=== PATIENT | male | born 1950 | race Hispanic/Latino ===

== ENCOUNTER 2016-06-15 10:48 | Emergency (ER) | payer MEDICARE ==
[2016-06-15 10:58] VITALS: BMI 28.1
[2016-06-15] MEDS ORDERED: Morphine 4 mg/ml ISec IVP STA (11:30)
[2016-06-15] MEDS ORDERED: Sodium Chloride 0.9% 1,000 ML IV STA (11:30)
--- NOTE | 2016-06-15 11:43 | ED PDOC ---
Arrival/HPI - General Chief Complaint: Male Genitourinary Time Seen by Provider: 06/15/16 11:19 Historian: Patient - History of Present Illness Narrative History of Present Illness (Text): 06/15/16 11:22 A 65 year old male, whose past medical history includes hypertension and ulcerative colitis, presents to the emergency department complaining of urinary problem and lower back pain. Patient reports for the past 4 days he has been experiencing blood in the urine along with dysuria. Patient notes he has a history of ulcerative colitis and usually when it acts up he need to take more prednisone, which leads to him having urinary issues. Patient mention the blood in the urine was just 2 times and then it cleared up. Patient also complains of left lower back pain but also mentions he exercised yesterday, after which the pain developed. Patient denies any abdominal pain, nausea, vomiting, fever, chills, lower extremity swelling, shortness of breath, chest pain, or any complaints at this time. PMD: Dr. Mota Time/Duration: < week (4 days) Symptom Onset: Gradual Symptom Course: Unchanged Quality: Burning Activities at Onset: Rest Modifying Factors (Text): none Context: Home Associated Symptoms (Text): dysuria Past Medical History - Provider Review Nursing Documentation Reviewed: Yes - Infectious Disease Hx of Infectious Diseases: None - Cardiac Hx Cardiac Disorders: Yes Hx Hypertension: Yes Hx Pacemaker: No - Pulmonary Hx Respiratory Disorders: No - Neurological Hx Neurological Disorder: No Hx Paralysis: No - HEENT Hx HEENT Disorder: No - Renal Hx Renal Disorder: No - Endocrine/Metabolic Hx Endocrine Disorders: No - Hematological/Oncological Hx Blood Transfusions: No Hx Blood Transfusion Reaction: No - Integumentary Hx Dermatological Disorder: No - Musculoskeletal/Rheumatological Hx Musculoskeletal Disorders: No - Gastrointestinal Hx Gastrointestinal Disorders: Yes Hx Irritable Bowel: Yes (ulcerative colitis) - Genitourinary/Gynecological Hx Genitourinary Disorders: No - Psychiatric Hx Psychophysiologic Disorder: No Hx Substance Use: No - Surgical History Other/Comment: surgery for trigeminal neuralgia - Anesthesia Hx Anesthesia: Yes Hx Anesthesia Reactions: No Hx Malignant Hyperthermia: No Family/Social History - Physician Review Nursing Documentation Reviewed: Yes Family/Social History: Unknown Family HX Smoking Status: Never Smoked Hx Alcohol Use: No Hx Substance Use: No Allergies/Home Meds Allergies/Adverse Reactions: Allergies clarithromycin [From Biaxin] Adverse Reaction (Verified 06/15/16 10:59) DIARRHEA clindamycin Adverse Reaction (Verified 06/15/16 10:59) DIARRHEA NSAIDS (Non-Steroidal Anti-Inflamma Adverse Reaction (Verified 06/15/16 11:03) DIARRHEA Home Medications: Home Meds Medication Instructions Recorded Confirmed Mesalamine [Lialda] 1 tab PO BID 06/15/16 06/15/16 Prednisone [Prednisone] 40 mg PO DAILY 06/15/16 06/15/16 Valsartan [Diovan] 80 mg PO DAILY 06/15/16 06/15/16 Review of Systems - Physician Review All systems were reviewed & negative as marked: Yes - Review of Systems Constitutional: absent: Fevers, Other (chills) Respiratory: absent: SOB Cardiovascular: absent: Chest Pain Gastrointestinal: absent: Abdominal Pain, Diarrhea, Nausea, Vomiting Genitourinary Male: Dysuria, Hematuria Musculoskeletal: Back Pain. absent: Other (lower extremity swelling) Physical Exam Vital Signs Reviewed: Yes Vital Signs Temp Pulse Resp BP Pulse Ox 06/15/16 10:59 98.3 F 120 H 17 166/95 H 95 Temperature: Afebrile Blood Pressure: Hypertensive Pulse: Tachycardic Respiratory Rate: Normal Appearance: Positive for: Well-Appearing, Non-Toxic, Comfortable Pain Distress: None Mental Status: Positive for: Alert and Oriented X 3 - Systems Exam Head: Present: Atraumatic, Normocephalic Pupils: Present: PERRL Extroacular Muscles: Present: EOMI Conjunctiva: Present: Normal Mouth: Present: Dry Nose (External): Present: Atraumatic Nose (Internal): Present: Normal Inspection Neck: Present: Normal Range of Motion Respiratory/Chest: Present: Clear to Auscultation, Good Air Exchange. No: Respiratory Distress, Accessory Muscle Use Cardiovascular: Present: Normal S1, S2, Tachycardic. No: Murmurs Abdomen: Present: Normal Bowel Sounds. No: Tenderness, Distention, Peritoneal Signs Back: No: Midline Tenderness, Paraspinal Tenderness Upper Extremity: Present: Normal Inspection. No: Cyanosis, Edema Lower Extremity: Present: Normal Inspection. No: Edema Neurological: Present: GCS=15, CN II-XII Intact, Speech Normal Skin: Present: Warm, Dry, Normal Color. No: Rashes Psychiatric: Present: Alert, Oriented x 3, Normal Insight, Normal Concentration Medical Decision Making ED Course and Treatment: 06/15/16 11:54 Impression: 65 year old male with hematuria, dysuria and lower back pain. Differential Diagnosis included but are not limited to: prostatitis vs. UTI vs. nephrolithiasis vs. aortic aneurysm Plan: -- EKG -- Abdomen/Pelvis CT -- Labs -- Urinalysis -- Morphine, Valium and IV Fluids -- Reassess and disposition Progress Notes: EKG: Ordered, reviewed, and independently interpreted the EKG. Rate : 112 BPM Rhythm : Sinus tachycardia Interpretation : No ST/T changes, left axis deviation, normal intervals. Comparison : No previous EKG for comparison. 06/15/16 13:40 Abdomen/Pelvis CT: Creator : Keenan Beard MD COMPARISON: None. FINDINGS: LOWER THORAX: Unremarkable. LIVER: Unremarkable. No gross lesion or ductal dilatation. GALLBLADDER AND BILE DUCTS: Unremarkable. PANCREAS: Unremarkable. No gross lesion or ductal dilatation. SPLEEN: Unremarkable. ADRENALS: Unremarkable. No mass. KIDNEYS AND URETERS: There is a 4 mm stone in the left distal ureter at the level of the mid sacrum seen on 139 series 3 and coronal image 80. There is associated moderate hydronephrosis of the left kidney and a large amount of perinephric stranding and edema. VASCULATURE: There is an infrarenal abdominal aortic aneurysm measuring 3.8 x 4.4 cm with mural thrombus. There is mild dilatation of the common iliac arteries. BOWEL: Unremarkable. No obstruction. No gross mural thickening. APPENDIX: Normal appendix. PERITONEUM: Unremarkable. No free fluid. No free air. LYMPH NODES: Unremarkable. No enlarged lymph nodes. BLADDER: Unremarkable. REPRODUCTIVE: Unremarkable. BONES: No acute fracture. OTHER FINDINGS: None. IMPRESSION: 4 mm distal ureteral stone on the left with moderate hydronephrosis and a large amount of perinephric stranding. Infrarenal abdominal aortic aneurysm 06/15/16 14:16 Dr. Svetlana michelle. 06/15/16 14:35 Patient with noted history. Patient's pain is likely from the ureteral stone. It is 4 mm, and he says he can follow up with Dr. Joe tomorrow for the renal stone. His WBC is 14K, and it may be due to the prednisone, but since that is uncertain, will start on abx (he says he has responded to Bactrim DS in the past). Patient's aneurysm is up to 4.4 cm; the urgency of following up regarding this has been expressed to the patient. Spoke with Dr. Mota, who said to have him follow up with Dr. Chase. He currently feels much better and wants to go home - will dc. 06/15/16 14:43 Patient came with tachycardia; ekg unremarkable and no cardiopulmonary complaints. He reports a history of tachycardia due to prednisone use. - Lab Interpretations Lab Results: 06/15/16 12:10 06/15/16 12:10 Lab Results 06/15/16 12:10: WBC 14.2 H, RBC 4.93, Hgb 15.8, Hct 45.6, MCV 92.5, MCH 32.0, MCHC 34.6, RDW 13.9, Plt Count 215, MPV 10.4, Neutrophils % (Manual) 93 H, Band Neutrophils % 2, Lymphocytes % (Manual) 2 L, Monocytes % (Manual) 3, PT 10.6, INR 0.98, APTT 22.2 L, Sodium 136, Potassium 4.2, Chloride 99, Carbon Dioxide 27 , Anion Gap 14, BUN 23 H, Creatinine 1.3, Est GFR ( Amer) > 60, Est GFR ( Non-Af Amer) 55, Random Glucose 205 H, Calcium 9.9, Total Bilirubin 0.9, AST 29 , ALT 37, Alkaline Phosphatase 36 L, Lactate Dehydrogenase 761 H, Total Creatine Kinase 25 L, Troponin I < 0.01, Total Protein 7.1, Albumin 3.8, Globulin 3.2, Albumin/Globulin Ratio 1.2, Amylase 109, Lipase 121 06/15/16 11:53: Urine Color Yellow, Urine Appearance Clear, Urine pH 6.0, Ur Specific [place] >= 1.030, Urine Protein 100 H, Urine Glucose (UA) 500 H, Urine Ketones Trace H, Urine Blood Large H, Urine Nitrate Negative, Urine Bilirubin Negative, Urine Urobilinogen 0.2, Ur Leukocyte Esterase Negative, Urine RBC 25 - 30, Urine WBC 0 - 2, Ur Epithelial Cells 0 - 2, Urine Bacteria Few I have reviewed the lab results: Yes - RAD Interpretation Radiology Orders: 06/15/16 11:29 ABDOMEN,PELVIS W/WO CONTRAST [CT] Stat - Medication Orders Current Medication Orders: Discontinued Medications Diazepam (Valium) 5 mg PO ONCE ONE Stop: 06/15/16 11:31 Last Admin: 06/15/16 12:17 Dose: Not Given Non-Admin Reason: Patient Refused Diazepam (Valium) 5 mg PO ONCE STA Stop: 06/15/16 13:31 Last Admin: 06/15/16 13:53 Dose: 5 MG Behavioural Document 06/15/16 13:53 GMI (Rec: 06/15/16 13:54 GMI [id number]) Maintenance Maintenance Dose No Nonmedicinal Nonmedicinal Interventions See nurse's notes Comment back spasm Behavior Behavior for Medication: Anxiety Behavior Comment facial grimace due to pain. Sodium Chloride (Sodium Chloride 0.9%) 1,000 mls @ 999 mls/hr IV .Q1H1M STA Stop: 06/15/16 12:30 Last Admin: 06/15/16 12:08 Dose: 999 MLS/HR eMAR Start Stop Document 06/15/16 12:08 GMI (Rec: 06/15/16 12:08 GMI [id number]) Intravenous Solution Start Date 06/15/16 Start Time 12:08 End Date 06/15/16 End time 13:55 Total Infusion Time 107 Iohexol (Omnipaque 350 100 Ml) Confirm Administered Dose 350 mg .ROUTE .STK-MED ONE Stop: 06/15/16 12:46 Morphine Sulfate (Morphine) 4 mg IVP STAT STA Stop: 06/15/16 11:31 Last Admin: 06/15/16 12:15 Dose: 4 MG MAR Pain Assessment Document 06/15/16 12:15 GMI (Rec: 06/15/16 12:17 GMI [id number]) Pain Reassessment Is this a pain reassessment? Yes Sleep Is patient sleeping during reassessment? No Presence of Pain Presence of Pain Yes Location Upper or Lower Lower Pain Location Body Site Back Description Description Sharp Intensity of Pain at present 10 IVP Administration Document 06/15/16 12:15 GMI (Rec: 06/15/16 12:17 GMI [id number]) Charges for Administration # of IVP Administrations 1 - Scribe Statement The provider has reviewed the documentation as recorded by the [facility] training under Fadumo Rai All medical record entries made by the Scribe were at my direction and personally dictated by me. I have reviewed the chart and agree that the record accurately reflects my personal performance of the history, physical exam, medical decision making, and the department course for this patient. I have also personally directed, reviewed, and agree with the discharge instructions and disposition. Disposition/Present on Arrival - Present on Arrival Any Indicators Present on Arrival: No History of DVT/PE: No History of Uncontrolled Diabetes: No Urinary Catheter: No History of Decub. Ulcer: No History Surgical Site Infection Following: None - Disposition Have Diagnosis and Disposition been Completed?: Yes Diagnosis: Left ureteral stone, Aneurysm of infrarenal abdominal aorta Disposition Time: 14:40 Patient Plan: Discharge Patient Problems: Current Active Problems Problem Status Diagnosed Aneurysm of infrarenal abdominal aorta Acute Left ureteral stone Acute Condition: GOOD Discharge Instructions (ExitCare): Abdominal Aortic Aneurysm (GEN), Abdominal Aortic Aneurysm (DC), Ureteral Stones (ED) Additional Instructions: Drink plenty of fluids, about 3 liters per day. Take the pain meds as prescribed. Follow up with Dr. Joe tomorrow and Dr. Chase as soon as possible. Also, follow up with your primary care doctor. Return to the emergency department if any new concerning symptoms. Prescriptions: Sulfamethoxazole/Trimethoprim [Bactrim DS 800 mg-160 mg] 1 tab PO BID #20 tab oxyCODONE/Acetaminophen [Percocet 5/325 mg Tab] 1 - 2 tab PO Q6H PRN #20 tab PRN Reason: Pain, Severe (8-10) Referrals: Patric Joe MD [Staff Provider] - Follow up with primary Maynor Chase Jr., MD [Staff Provider] - Follow up with primary Omkar Zaman MD [Staff Provider] - Follow up with primary Freddie Mota DO [Family Provider] - Follow up with primary
[2016-06-15 11:58] LABS: URINE BILIRUBIN NEGATIVE (NEGATIVE); URINE BLOOD LARGE (NEGATIVE); URINE GLUCOSE (UA) 500 mg/dL (NEGATIVE); URINE KETONE TRACE mg/dL (NEGATIVE); URINE LEUKOCYTE ESTERASE NEGATIVE Leu/uL (NEGATIVE); URINE PROTEIN 100 mg/dL (<30 mg/dL); URINE UROBILINOGEN 0.2 E.U./dL (<1 E.U./dL)
[2016-06-15 12:01] LABS: URINE APPEARANCE CLEAR (CLEAR); URINE COLOR YELLOW (YELLOW)
[2016-06-15 12:13] LABS: URINE BACTERIA FEW (NEG); URINE EPITHELIAL CELLS 0 - 2 /hpf (0-5); URINE RBC 25 - 30 /hpf (0-2); URINE WBC 0 - 2 /hpf (0-6)
[2016-06-15 12:19] LABS: HEMATOCRIT 45.6 % (42.0-52.0); MEAN CELL VOLUME 92.5 fL (80.0-105.0); MEAN CORPUSCULAR HGB CONC 34.6 g/dl (31.0-37.0); MEAN PLATELET VOLUME 10.4 fl (7.0-11.0); PLATELET COUNT 215 10^3/uL (120.0-450.0); RED CELL DISTRIBUTION WIDTH 13.9 % (11.5-14.5); WHITE BLOOD COUNT 14.2 10^3/ul (4.5-11.0)
[2016-06-15 12:20] LABS: ADD MANUAL DIFF? YES
[2016-06-15 12:29] LABS: INR 0.98 (0.93-1.08); PARTIAL THROMBOPLASTIN TIME 22.2 Seconds (23.7-30.8)
[2016-06-15 12:33] LABS: BAND 2 % (0-2); NEUTROPHIL 93 % (50.0-70.0)
[2016-06-15 12:36] LABS: ALB/GLOB RATIO 1.2 (1.1-1.8); ALKALINE PHOSPHATASE 36 U/L (38-133); ALT/SGPT 37 U/L (7-56); AMYLASE 109 U/L (35-125); AST/SGOT 29 U/L (15-59); BILIRUBIN,TOTAL 0.9 mg/dL (0.2-1.3); BLOOD UREA NITROGEN 23 mg/dL (7-21); CALCIUM 9.9 mg/dL (8.4-10.5); CARBON DIOXIDE 27 mmol/L (21-33); CHLORIDE 99 mmol/L (98-107); GFR AFRICAN-AMERICAN > 60; GLUCOSE,RANDOM 205 mg/dL (70-110); LIPASE 121 U/L (23-300); POTASSIUM 4.2 mmol/L (3.6-5.0); SODIUM 136 mmol/L (132-148); TOTAL PROTEIN 7.1 g/dL (5.8-8.3)
[2016-06-15] MEDS ORDERED: Iohexol 350 MG/100 ML VIAL ONE (12:45)
[2016-06-15 12:48] LABS: TROPONIN I < 0.01 ng/mL
--- NOTE | 2016-06-15 13:36 | CT ---
PROCEDURE: CT Abdomen with and without intravenous contrast HISTORY: h/o distal AAA with back pain and hematuria today COMPARISON: None. TECHNIQUE: Axial images of the abdomen from lung bases to iliac crest with and without intravenous contrast enhancement. Coronal and sagittal reformats generated. Oral contrast also administered. Intravenous contrast Dose: 94 cc of Omni 350 Radiation dose: Total exam DLP = 1857 mGy-cm. This CT exam was performed using one or more of the following dose reduction techniques: Automated exposure control, adjustment of the mA and/or kV according to patient size, and/or use of iterative reconstruction technique. FINDINGS: LOWER THORAX: Unremarkable. LIVER: Unremarkable. No gross lesion or ductal dilatation. GALLBLADDER AND BILE DUCTS: Unremarkable. PANCREAS: Unremarkable. No gross lesion or ductal dilatation. SPLEEN: Unremarkable. ADRENALS: Unremarkable. No mass. KIDNEYS AND URETERS: There is a 4 mm stone in the left distal ureter at the level of the mid sacrum seen on 139 series 3 and coronal image 80. There is associated moderate hydronephrosis of the left kidney and a large amount of perinephric stranding and edema. VASCULATURE: There is an infrarenal abdominal aortic aneurysm measuring 3.8 x 4.4 cm with mural thrombus. There is mild dilatation of the common iliac arteries. BOWEL: Unremarkable. No obstruction. No gross mural thickening. APPENDIX: Normal appendix. PERITONEUM: Unremarkable. No free fluid. No free air. LYMPH NODES: Unremarkable. No enlarged lymph nodes. BLADDER: Unremarkable. REPRODUCTIVE: Unremarkable. BONES: No acute fracture. OTHER FINDINGS: None. IMPRESSION: 4 mm distal ureteral stone on the left with moderate hydronephrosis and a large amount of perinephric stranding. Infrarenal abdominal aortic aneurysm
[2016-06-15] MEDS ORDERED: Oxycodone/Acetaminophen 5/325 mg Tab PO STA (14:41)
[2016-06-15 15:36] VITALS: BP 119/71; PULSE 85; RESP 19; TEMP 97.5; O2SAT 97
--- NOTE | 2016-06-16 16:38 | CARD ---
APPROVED REPORT EKG Measurement Heart [id number] ID [id number] <Conclusion> Poor data quality, interpretation may be adversely affected Sinus tachycardia Left anterior fascicular block Abnormal ECG
== END 2016-06-15 15:37 | disposition home or self-care (01) ==
LOC: ED 10:48
DX: N20.1 Calculus of ureter (principal); I71.4 Abdominal aortic aneurysm, without rupture; I10 Essential (primary) hypertension
CPT/HCPCS: 74178; 80053; 81001; 82150; 82550; 83615; 83690; 84484; 85025; 85610; 85730; 87086; 93005; 96361; 96374; 99285; J2270; J7040; Q9967